=== PATIENT | male | born 1945 | race Caucasian/White ===

== ENCOUNTER 2023-02-22 09:10 | Inpatient (IN) ==
[2023-02-22] MEDS ORDERED: SODIUM CHLORIDE 0.9% 500 ML IV STA (09:26)
--- NOTE | 2023-02-22 09:26 | Emergency Department Note ---
Impression & Plan Acute pyelonephritis, Thrombocytopenia, Hypokalemia, Elevated troponin I level, Abnormal EKG ED Provider Note NAME: SAMM ACEVEDO Jr AGE: 77 SEX: M : 1945 ARRIVES VIA: Walk-In INFORMANT: Patient, ED PROVIDER(S): Marcellus Amaral DO CHIEF COMPLAINT: Urinary symptoms HPI: The patient is a 77-year-old male who presented to the emergency department for urinary symptoms. The patient presented with his daughter and significant other. They do provide part of the history. The patient has been having problems with urinary frequency over the course of the last few days. The patient is visiting from out of town. His son-in-law is a urologist and gave him a dose of a prostate medication thinking the patient might be in urinary retention. He has had a slight uptrend in his PSA recently but no specific diagnosis of urinary tension or prostate issues as of yet. He notices no fever or back pain but he started having diaphoresis. His family was concerned because he was not acting appropriately and appeared to be more tired than usual . There is been no vomiting. He denies having any chest pain or difficulty breathing. The patient denies having any hematuria. ROS: See above HPI for pertinent positives & negatives. A total of 10 systems reviewed and were otherwise negative. PAST MEDICAL HISTORY: See Below PAST SURGICAL HISTORY: See Below FAMILY HISTORY: See Below SOCIAL HISTORY: See Below HOME MEDICATIONS: See Below ALLERGIES: See Below VITALS: See Below PHYSICAL EXAMINATION: GENERAL: The patient is awake and alert. He is resting comfortably. EYES: The conjunctivae are clear. The pupils are round and reactive. EARS, NOSE, MOUTH AND THROAT: The nose is without any evidence of any deformity. Mucous membranes are moist. The right cornea is surgically irregular. NECK: The neck is nontender and supple. RESPIRATORY: Normal respiratory effort is noted there is no evidence of wheezing rhonchi or rales CARDIOVASCULAR: Regular rate and rhythm noted there no murmurs rubs or gallops normal S1 normal S2. GASTROINTESTINAL: The abdomen is soft and mildly distended. There is no specific tenderness guarding rigidity. BACK: No midline tenderness or or step-off noted range of motion in flexion extension as well as rotation no signs of muscle spasm noted MUSCULOSKELETAL/EXTREMITIES: There is no evidence of gross deformity full range of motion is noted in the hips and shoulders. SKIN: Skin is cool and dry. There is diaphoresis noted on the forehead. NEUROLOGIC: Patient is awake alert and oriented x3. MEDICAL DECISION MAKING: The patient is a 77-year-old male who presented to the emergency department with multiple complaints. The patient was with family. The family was very helpful in providing a good portion of the history. The patient was having problems with urinary frequency. Initially was felt to be secondary to urinary retentio n. He was started on a prostate medication by his son-in-law. The patient started having problems with sleeping. He presented to the emergency department and was very diaphoretic. This concerned the family members and this is why they brought him to the emergency department. The patient initially was not hypotensive but blood pressure did start to drop while in the emergency department. The patient was treated with IV fluids. He was also given IV antibiotics for presumed sepsis. I discussed the patient's laboratory and radiographic studies with him and his family. He was also found to have an abnormal EKG as well as an elevated troponin. There is no previous EKG in our system. For this reason further radiographic studies in the way of CT were obtained to ensure this was not pulmonary embolism as well as nothing intra- abdominal that was causing the patient's ongoing symptoms such as a perinephric abscess or pyelonephritis. The patient was found to have some abnormality in th e prostate which could be related to enlargement. He was reevaluated multiple times. Urinalysis did have a dip that could be consistent with infection but there were not many white blood cells. I would question if this represents an underlying prostate infection as well. I discussed all these concerns with the patient's family. I also discussed his condition with the on-call [facility] hospitalist. They have agreed to evaluate the patient in the emergency department for further management and disposition. Triage Nursing notes reviewed. Prior medical records reviewed Vital Signs: reviewed and remarkable for low blood pressure. Differential diagnosis: Testicular torsion, mass, infection, hernia, hydrocele, epididymitis, STI, trauma, intra-abdominal process, as well as other pathologies. ER treatment provided: See below Diagnostics interpreted by me: ECG: EKG was obtained in the emergency department. My interpretation is normal sinus rhythm at 71 bpm. There was no ectopy. Early transition was noted. Nonspecific ST segment abnormalities were appreciated. No previous tracing was available. Cardiac Monitoring: An order was placed for continuous cardiac monitoring. The monitor shows a rate of 64 bpm with sinus rhythm. Laboratory studies: As stated above and show below. Imaging studies: See below. Radiographic imaging was reviewed by myself Consultation(s): I discussed this case with Dr. Ho who is on-call for the [facility] hospitalist group. They will evaluate the patient in the emergency department for further management and disposition. ED COURSE: Procedures: none Critical Care: I have personally spent greater than 45 minutes of critical care time in the direct management of this patient. This includes bedside care, interpretation of diagnostic studies, and testing, discussion with consultants, patient, and family members, and other required patient management activities. This 45 minutes is in excess of all separately billable procedures. Past Med/Surg History Medical History High cholesterol Hypertension TIA (transient ischemic attack) Surgical History Hx of appendectomy Hx of cornea transplant Social History Smoking Status: Never smoker Preferred Language: Macedonian Feels Safe at Home: Yes Allergies Allergies Allergy/AdvReac Type Severity Reaction Status Date / Time No Known Allergies Allergy Unverified 02/22/23 10:43 Home Meds Home Medications Medication Instructions Recorded Confirmed aspirin 81 mg tablet,delayed 81 mg PO DAILY 02/22/23 02/22/23 release atorvastatin 80 mg tablet 80 mg PO HS 02/22/23 02/22/23 polyethylene glycol 3350 17 gram 17 g PO DAILY 02/22/23 02/22/23 oral powder packet (Miralax) primidone 50 mg tablet 50 mg PO HS 02/22/23 02/22/23 silodosin 8 mg capsule (Rapaflo) 8 mg PO DAILY 02/22/23 02/22/23 Results & Data (ED) Vital Signs Vital Signs - 24 hr 02/22/23 09:15 02/22/23 09:46 02/22/23 09:47 Temperature 36.9 C 36.9 C Temperature Source Temporal Artery Scan Oral Pulse Rate 76 73 Pulse Rate [Apical] 70 Pulse Rhythm [Apical] Regular Respiratory Rate 18 18 Respiratory Effort / Characteristics Non-Labored Spontaneous Non-Labored Spontaneous Respiratory Depth Normal Normal Respiratory Pattern Regular Regular Blood Pressure 101/72 Blood Pressure [Right Arm] 105/65 Blood Pressure Mean 81 Blood Pressure Mean [Right Arm] 78 Blood Pressure Position [Right Arm] Lying Pulse Oximetry 98 98 Oxygen Delivery Method Room Air Room Air Sepsis Recent Fever Within 48 Hours No Sepsis New/Unexplained Change in Mental Status No Sepsis Action Taken by Nursing No Action Required 02/22/23 10:38 02/22/23 11:03 Temperature Temperature Source Pulse Rate Pulse Rate [Apical] 64 Pulse Rhythm [Apical] Regular Respiratory Rate 18 Respiratory Effort / Characteristics Non-Labored Spontaneous Respiratory Depth Normal Respiratory Pattern Regular Blood Pressure Blood Pressure [Right Arm] 97/65 L Blood Pressure Mean Blood Pressure Mean [Right Arm] 75 Blood Pressure Position [Right Arm] Lying Pulse Oximetry 98 94 Oxygen Delivery Method Room Air Room Air Sepsis Recent Fever Within 48 Hours Sepsis New/Unexplained Change in Mental Status Sepsis Action Taken by [facility] Medications Current Medication List: was personally reviewed by me Laboratory Data Attestation: I reviewed the patient's lab results. 02/22/23 09:55 02/22/23 09:55 Lab Results 02/22/23 02/22/23 02/22/23 Range/Units 09:55 09:55 09:55 WBC 4.99 (4.8-10.8) K/ul RBC 5.03 (4.70-6.10) M/uL Hgb 16.3 (14.0-18.0) g/dl Hct 45.4 (42.0-52.0) % MCV 90.3 (80.0-100.0) fL MCH 32.4 (25.0-34.0) pg MCHC 35.9 (32.0-36.0) g/dL RDW Std Deviation 39.8 (36.4-46.3) fL RDW Coeff of Geno 12.0 (11.5-14.5) % Plt Count 66 L (130-400) K/uL MPV 10.5 (9.4-12.4) fL Immature Gran % (Auto) 0.8 % Neut % (Auto) 90.6 % Lymph % (Auto) 5.8 % [place] % (Auto) 2.2 % Eos % (Auto) 0.0 % Baso % (Auto) 0.6 % Neut # (Auto) 4.52 (1.40-6.50) K/uL Lymph # (Auto) 0.29 L (1.2-3.4) K/uL [place] # (Auto) 0.11 (0.11-0.59) K/uL Eos # (Auto) 0.00 (0-0.50) K/uL Baso # (Auto) 0.03 (0-0.2) K/uL Immature Gran # (Auto) 0.04 (0.01-0.20) K/uL Platelet Estimate Decreased L (Normal) Sodium 133 L (136-145) mmol/L Potassium 2.8 L (3.5-5.1) mmol/L Chloride 94 L (98-107) mmol/L Carbon Dioxide 27 (21-32) mmol/L Anion Gap 12 H (3-11) BUN 18 (6-23) mg/dl Creatinine 1.05 (0.6-1.4) mg/dl Est Cr Clr Drug Dosing 57.9 ml/min Est GFR ( Amer) 79.5 ml/min Est GFR (Non-Af Amer) 68.6 ml/min BUN/Creatinine Ratio 17.1 (10-20) Glucose 150 H (70-99(Fasting)) mg/dl Calcium 8.7 (8.6-10.3) mg/dl Total Bilirubin 2.1 H (0.2-1.0) mg/dl AST 50 H (13-39) U/L ALT 47 (7-52) U/L Alkaline Phosphatase 106 H (34-104) U/L Troponin I High Sens 41.2 H (0-20) pg/ml C-Reactive Protein 11.48 H (0-0.5) mg/dl Total Protein 6.6 (6.0-8.3) gm/dl Albumin 3.8 (3.4-5.0) gm/dl Globulin 2.8 (2.5-4.0) gm/dl Albumin/Globulin Ratio 1.4 (0.9-2) Lipase 17 (11-82) U/L Procalcitonin 0.79 H (0-0.5) ng/ml Urine Color Urine Appearance (Clear) Urine pH (4.5-7.5) Ur Specific [place] (1.000-1.030) Urine Protein (Negative) Urine Glucose (UA) (Negative) Urine Ketones (Negative) Urine Blood (Negative) Urine Nitrite (Negative) Urine Bilirubin (Negative) Urine Urobilinogen (Negative) Ur Leukocyte Esterase (Negative) Urine WBC (Auto) (0-5) /hpf Urine RBC (Auto) (0-4) /hpf U Hyaline Cast (Auto) (0-5) /lpf U Epithel Cells (Auto) (0-5) /lpf Urine Bacteria (Auto) (Negative) Ur Renal Epithelial Cell Granular Casts (0) /lpf Urine Mucus (None Prsent) 02/22/23 Range/Units 11:03 WBC (4.8-10.8) K/ul RBC (4.70-6.10) M/uL Hgb (14.0-18.0) g/dl Hct (42.0-52.0) % MCV (80.0-100.0) fL MCH (25.0-34.0) pg MCHC (32.0-36.0) g/dL RDW Std Deviation (36.4-46.3) fL RDW Coeff of Geno (11.5-14.5) % Plt Count (130-400) K/uL MPV (9.4-12.4) fL Immature Gran % (Auto) % Neut % (Auto) % Lymph % (Auto) % [place] % (Auto) % Eos % (Auto) % Baso % (Auto) % Neut # (Auto) (1.40-6.50) K/uL Lymph # (Auto) (1.2-3.4) K/uL [place] # (Auto) (0.11-0.59) K/uL Eos # (Auto) (0-0.50) K/uL Baso # (Auto) (0-0.2) K/uL Immature Gran # (Auto) (0.01-0.20) K/uL Platelet Estimate (Normal) Sodium (136-145) mmol/L Potassium (3.5-5.1) mmol/L Chloride (98-107) mmol/L Carbon Dioxide (21-32) mmol/L Anion Gap (3-11) BUN (6-23) mg/dl Creatinine (0.6-1.4) mg/dl Est Cr Clr Drug Dosing ml/min Est GFR ( Amer) ml/min Est GFR (Non-Af Amer) ml/min BUN/Creatinine Ratio (10-20) Glucose (70-99(Fasting)) mg/dl Calcium (8.6-10.3) mg/dl Total Bilirubin (0.2-1.0) mg/dl AST (13-39) U/L ALT (7-52) U/L Alkaline Phosphatase (34-104) U/L Troponin I High Sens (0-20) pg/ml C-Reactive Protein (0-0.5) mg/dl Total Protein (6.0-8.3) gm/dl Albumin (3.4-5.0) gm/dl Globulin (2.5-4.0) gm/dl Albumin/Globulin Ratio (0.9-2) Lipase (11-82) U/L Procalcitonin (0-0.5) ng/ml Urine Color Dark Yellow Urine Appearance Cloudy A (Clear) Urine pH 5.5 (4.5-7.5) Ur Specific [place] 1.030 (1.000-1.030) Urine Protein 2+ H (Negative) Urine Glucose (UA) 1+ H (Negative) Urine Ketones 1+ H (Negative) Urine Blood Trace H (Negative) Urine Nitrite Positive A (Negative) Urine Bilirubin 1+ H (Negative) Urine Urobilinogen Negative (Negative) Ur Leukocyte Esterase Negative (Negative) Urine WBC (Auto) 5-10 H (0-5) /hpf Urine RBC (Auto) 0-4 (0-4) /hpf U Hyaline Cast (Auto) 10-30 H (0-5) /lpf U Epithel Cells (Auto) >30 H (0-5) /lpf Urine Bacteria (Auto) 1+ H (Negative) Ur Renal Epithelial Cell Not Reportable Granular Casts 1-5 H (0) /lpf Urine Mucus Present A (None Prsent) Administered Medications Discontinued Medications Sodium Chloride (Nss) 500 mls @ 999 mls/hr IV .Q31M STA Stop: 02/22/23 09:56 Last Infusion: 02/22/23 11:37 Dose: 0 mls/hr Documented By: Admin: 02/22/23 09:49 Dose: 999 mls/hr Documented By: GABBI Sodium Chloride (Nss 1000ml) 500 mls @ 999 mls/hr IV .Q31M ONE Stop: 02/22/23 10:07 Last Infusion: 08/14/23 11:02 Dose: 0 mls/hr Documented By: Admin: 02/22/23 09:49 Dose: 999 mls/hr Documented By: GABBI Cefepime HCl (Maxipime) 2,000 mg in 20 mls @ 5 mls/min IV NOW STA; Protocol Stop: 02/22/23 11:19 Last Admin: 02/22/23 11:36 Dose: 5 mls/min Documented By: GABBI Potassium Chloride (K Sheng / Wtr) 10 meq in 100 mls @ 100 mls/hr IV ONE ONE Stop: 02/22/23 12:15 Last Infusion: 02/22/23 13:53 Dose: 0 mls/hr Documented By: Admin: 02/22/23 11:36 Dose: 100 mls/hr Documented By: GABBI Sodium Chloride (Nss 1000ml) 250 mls @ 999 mls/hr IV .Q16M ONE Stop: 02/22/23 11:32 Last Infusion: 02/22/23 12:25 Dose: 0 mls/hr Documented By: Admin: 02/22/23 11:36 Dose: 999 mls/hr Documented By: GABBI Sodium Chloride (Nss 1000ml) 1,000 mls @ 999 mls/hr IV .Q1H1M ONE Stop: 02/22/23 12:17 Last Infusion: 02/22/23 13:07 Dose: 0 mls/hr Documented By: Admin: 02/22/23 11:36 Dose: 999 mls/hr Documented By: GABBI Ioversol (Ioversol 350 Mg 125ml Prefilled Syringe) 118 ml IV ONCE ONE Stop: 02/22/23 12:52 Last Admin: 02/22/23 12:51 Dose: 118 ml Documented By: ROE Potassium Chloride (Potassium Chloride 10 Meq Tabcr) 20 meq PO NOW STA Stop: 02/22/23 11:17 Last Admin: 02/22/23 11:36 Dose: 20 meq Documented By: GABBI Imaging Data Attestation: I personally reviewed and interpreted this imaging study as follows: My Impression: 1 view chest x-ray was obtained in the emergency department. My interpretation is no free air or definite infiltrate, final report below. CT of the brain was obtained in the emergency department. My interpretation is no intracranial hemorrhage or mass effect, final report below. CT of the chest was obtained in the emergency department. My interpretation is no infiltrate or pneumothorax, final report below. CT of the abdomen and pelvis was obtained in the emergency department. My interpretation is no free air or signs of obstruction, final report below. Radiologist's Impression: Chest X-Ray 02/22/23 09:28 XR chest 1V portable CLINICAL HISTORY: abd pain TECHNIQUE: Single frontal radiograph of the chest was obtained. Comparison: None available at the time of this dictation. FINDINGS: No lines and tubes are seen. The cardiomediastinal silhouette is normal. The lungs are clear. No evidence of pleural effusion or pneumothorax. IMPRESSION: No acute chest disease. ACT 112: Negative or not required by law. Electronically signed by: Filiberto Walden M.D. 02/22/2023 9:45 AM Discharge Plan Visit Data Chief Complaint: Urinary Symptoms Stated Complaint: URINARY PROBLEMS, SWEATING ED Provider: Marcellus Amaral Discharge Problem: Acute pyelonephritis, Thrombocytopenia, Hypokalemia, Elevated troponin I level, Abnormal EKG Patient Disposition: Admitted As Inpatient Discharge Instructions Interventions: ED Discharge Assessment Last Done: 02/22/23 13:18
[2023-02-22] MEDS ORDERED: SODIUM CHLORIDE 0.9% 1000ML 500 ML IV ONE (09:37)
--- NOTE | 2023-02-22 09:47 | XRay Report ---
XR chest 1V portable CLINICAL HISTORY: abd pain TECHNIQUE: Single frontal radiograph of the chest was obtained. Comparison: None available at the time of this dictation. FINDINGS: No lines and tubes are seen. The cardiomediastinal silhouette is normal. The lungs are clear. No evid ence of pleural effusion or pneumothorax. IMPRESSION: No acute chest disease. ACT 112: Negative or not required by law. Electronically signed by: Filiberto Walden M.D. 02/22/2023 9:45 AM
[2023-02-22 10:38] LABS: Albumin Globulin Ratio 1.4 (0.9-2); Albumin Level 3.8 gm/dl (3.4-5.0); BUN Creatinine Ratio 17.1 (10-20); Bilirubin,Total 2.1 mg/dl (0.2-1.0); C Reactive Protein 11.48 mg/dl (0-0.5); Calcium 8.7 mg/dl (8.6-10.3); Creatinine Clr Calc Pharmacy 57.9 ml/min; Est GFR (African American) 79.5 ml/min; Est GFR (Non-African American) 68.6 ml/min; Globulin 2.8 gm/dl (2.5-4.0); Potassium 2.8 mmol/L (3.5-5.1); Total Protein 6.6 gm/dl (6.0-8.3)
[2023-02-22 10:44] LABS: Troponin I High Sensitivity 41.2 pg/ml (0-20)
[2023-02-22 10:54] LABS: Basophils # (auto) 0.03 K/uL (0-0.2); Basophils % (auto) 0.6 %; Hematocrit (blood only) 45.4 % (42.0-52.0); Hemoglobin 16.3 g/dl (14.0-18.0); Immature Granulocytes # (auto) 0.04 K/uL (0.01-0.20); Immature Granulocytes % (auto) 0.8 %; Lymphocytes # (auto) 0.29 K/uL (1.2-3.4); Lymphocytes % (auto) 5.8 %; Mean Corpuscular Hemoglobin 32.4 pg (25.0-34.0); Mean Corpuscular Hgb Conc 35.9 g/dL (32.0-36.0); Mean Corpuscular Volume 90.3 fL (80.0-100.0); Mean Platelet Volume 10.5 fL (9.4-12.4); Monocytes # (auto) 0.11 K/uL (0.11-0.59); Monocytes % (auto) 2.2 %; Neutrophils # (auto) 4.52 K/uL (1.40-6.50); Neutrophils % (auto) 90.6 %; Platelet Count 66 K/uL (130-400); Platelet Estimate Decreased (Normal); RDW Standard Deviation 39.8 fL (36.4-46.3); Red Blood Count 5.03 M/uL (4.70-6.10); White Blood Count 4.99 K/ul (4.8-10.8)
[2023-02-22] MEDS ORDERED: POTASSIUM CHLORIDE / WTR 10 MEQ/100 ML PLCT IV ONE (11:16)
[2023-02-22] MEDS ORDERED: POTASSIUM CHLORIDE 10 MEQ TABCR PO STA (11:16)
[2023-02-22] MEDS ORDERED: CEFEPIME 2,000 MG/20 ML VIAL IV STA (11:16)
[2023-02-22] MEDS ORDERED: SODIUM CHLORIDE 0.9% 1000ML 1,000 ML IV ONE (11:17)
[2023-02-22] MEDS ORDERED: SODIUM CHLORIDE 0.9% 1000ML 250 ML IV ONE (11:17)
[2023-02-22 11:32] LABS: Appearance Urine Cloudy (Clear); Blood Urine Trace (Negative); Color Urine Dark Yellow; Epithelial Cell Urine Auto >30 /lpf (0-5); Glucose Urine UA 1+ (Negative); Ketones Urine 1+ (Negative); Leukocyte Esterase Urine Negative (Negative); Nitrite Urine Positive (Negative); Protein Urine 2+ (Negative); Urobilinogen Urine Negative (Negative); pH Urine 5.5 (4.5-7.5)
[2023-02-22 11:36] LABS: Bilirubin Urine 1+ (Negative)
--- NOTE | 2023-02-22 11:40 | History & Physical Report ---
Date of Service February 22, 2023 Assessment & Plan (1) Acute pyelonephritis: Plan: Complicated UTI, SIRS by hypotension and leukocytosis with source Ordered for 30 cc/kg of IVF M, 1 L complete at time of hospitalist admission - CT-A/P: 1. No bowel obstruction or bowel wall thickening.2. Prostatomegaly with urinary bladder wall thickening suggestive of chronic outlet obstruction. Correlate with urinalysis to exclude cystitis.3. Colonic diverticulosis.4. Additional findings as above. Lactate wnl BP on hospitalist assessment improved, normotensive Several days of urinary symptoms UA with ketones, blood, nitrites suspicious for infection, UC pending CXR: No acute findings No leukocytosis Potassium 2.8, AG 12 Pro-Ethan 0.79 suspicious for bacteremia CRP 11.48 - Continue cefepime, narrow based on UC Systolic murmur New holosystolic murmur, new per patient with no prior history of this TTE --> EF 60-65%. Moder . Hypokalemia 2.8 with poor p.o. intake for several days. 30 mEq repletion pending. Additional 20 mEq x 3 p.o. doses ordered Trend daily Magnesium added, pending. Replete to goal of 2.0 Elevated troponin No history of heart failure Clinically without chest pain, chest pressure. Suspected demand. Echo pending for murmur as noted - troponin 41.2 on admission, repeat post fluids downtrended. Defer q6h trend, follow clinically for pain EKG with incomplete right bundle branch block, QTc 423, no territorial ST segment or T wave changes. No baseline for comparison. Elevated PSA Patient follows with urology as outpatient, he is from [place] of state visiting for his grandsons birthday No history of prostate cancer or LUTS, but PSA has been slowly rising as outpatient.? Contribution to UTI He has not had pain with bowel movements or dysuria suspicious for prostatitis; however given suspected bacteremia due to cold sweats and elevated procal we will follow-up with prostate exam after patient has received antibiotics for a few hours DVT prophylaxis: Lovenox Disposition: Medical telemetry for elevated troponin, downgrade after 24 hours if stable and chest pain-free CODE STATUS: Full code Diet: Heart healthy (2) Thrombocytopenia: (3) Elevated troponin I level: (4) Hypokalemia: History of Present Illness Primary Care Provider: Johnny Becker Chris is a 77-year-old male with a past medical history of hypertension, TIA, appendectomy, hyperlipidemia, hyperlipidemia on aspirin/atorvastatin Chris is seen at the [facility] at bedside. Per ER: presented to the ER with dysuria and hypotension. Patient has had increased urinary frequency last several days. He has no fever/chills but did start to get sweaty episodes and fatigue. While in the ER he is fond to be hypotensive of 97/65. Total Fluids at Assessment: 1000. 2250cc total pending Per Family: Chris reports Staurday night he started having to get up every few hours to pee and could barely make it before he would have episodes of incontinence. The next day during the day he was having persistent frequency all day long and peed his shorts because he couldn't make it to the bathroom in time. last night he was up every hour voiding and then had some cold sweats in the morning which are not normal for him. Endorses weakness all over and fatigue. Feels exhausted and is having trouble sleeping because he has to keep urinating. Decreased appetite. No nausea/vomiting. 'I'm a haile that at 77 I can normally sleep all night long without any issues going to the bathroom, prostate has a PSA uptrending but no voiding issues from this' No dysuria or itching/ No pain with bowel movements. Does take miralax for regularity daily in the morning with coffee. 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 - Tried rapaflo x1 last night and this morning, this i snot a chronic med for him Medical History: Reviewed Medications: Reviewed Surgical History: Reviewed Family history: Reviewed Allergies: Reviewed Social History: Age [age] tobacco use while in the [employer], none in 46 years. Rare social etoh use Code Status: DNR/DNI Allergies Allergy/AdvReac Type Severity Reaction Status Date / Time No Known Allergies Allergy Unverified 02/22/23 10:43 Home Medications Medication Instructions Recorded Confirmed Type aspirin 81 mg tablet,delayed 81 mg PO DAILY 02/22/23 02/22/23 History release atorvastatin 80 mg tablet 80 mg PO HS 02/22/23 02/22/23 History polyethylene glycol 3350 17 gram 17 g PO DAILY 02/22/23 02/22/23 History oral powder packet (Miralax) primidone 50 mg tablet 50 mg PO HS 02/22/23 02/22/23 History silodosin 8 mg capsule (Rapaflo) 8 mg PO DAILY 02/22/23 02/22/23 History Past Med/Surg History Medical History High cholesterol Hypertension TIA (transient ischemic attack) Surgical History Hx of appendectomy Hx of cornea transplant Social History Smoking Status: Never smoker Preferred Language: Greek Feels Safe at Home: Yes Review of Systems Review of Systems: All systems reviewed & are unremarkable except as noted in HPI & below Physical Exam Physical Exam: General: A&Ox3. NAD. Cooperative. HEENT: Atraumatic, normocephalic. Vision/hearing intact Pulm: CTAB A&P. -wheezes, -rales, -rhonchi. Symmetrical chest rise. No increased work of breathing. No respiratory distress. Cardiac: RRR, -mrg. Radial pulses intact and symmetrical. Abdominal: Nontender, nondistended, soft. BS present. No CVA tenderness. Ext: warm, dry, no edema Results & Data Results & Data Vital Signs (Past 12 Hours) Vital Signs Temp Pulse Pulse Resp BP BP Pulse Ox 02/22/23 11:03 64 18 97/65 L 94 02/22/23 10:38 98 02/22/23 09:47 36.9 C 70 18 105/65 98 02/22/23 09:46 73 02/22/23 09:15 36.9 C 76 18 101/72 98 O2 Del Method 02/22/23 11:03 Room Air 02/22/23 10:38 Room Air 02/22/23 09:47 Room Air 02/22/23 09:46 02/22/23 09:15 Room Air PG Care Time/CCT Total # of Minutes Spent Total Time Spent with Patient: Total time spent is greater than 50% in coordination of care (as documented) at patient's floor/unit and/or counseling patient: Coding Level of Care Code 12608 INT INP/OBS CARE 3/75MIN Diagnoses Acute pyelonephritis N10 Thrombocytopenia D69.6 Elevated troponin I level R77.8 Hypokalemia E87.6
[2023-02-22 12:02] LABS: Mucus Urine Present (None Prsent); RBC Urine Automated 0-4 /hpf (0-4)
[2023-02-22 12:03] LABS: Bacteria Urine Automated 1+ (Negative)
[2023-02-22] MEDS ORDERED: IOVERSOL 350 MG 125mL Prefilled Syringe IV ONE (12:51)
--- NOTE | 2023-02-22 12:56 | CT Scan Report ---
CT head/brain wo con CLINICAL HISTORY: 77 years-old Male with AMS. Acutely altered mental status TECHNIQUE: Multiple axial CT images of the head were obtained without contrast. A dose lowering tech nique was utilized adhering to the principles of ALARA. CT DOSE: 4251.71 mGy.cm COMPARISON: None. FINDINGS: No acute intracranial hemorrhage, midline shift, intracranial mass, hydrocephalus, territorial ischem ia or abnormal extra-axial collection. Involutional changes with chronic microvascular ischemic disea se. The calvarium is intact. Right-sided lens repair. The paranasal sinuses, mastoid air cells, and midd le ear cavities are clear. IMPRESSION: No acute intracranial abnormality. ACT 112: Negative or not required by law. The above report was generated using voice recognition software. It may contain grammatical, syntax o r spelling errors. Electronically signed by: Santiago Moreno M.D. 02/22/2023 12:54 PM
[2023-02-22 13:00] LABS: Magnesium 1.6 mg/dl (1.7-2.4)
[2023-02-22 13:07] LABS: Troponin I High Sensitivity 31.6 pg/ml (0-20)
--- NOTE | 2023-02-22 13:11 | CT Scan Report ---
CT angio chest PE protocol CLINICAL HISTORY: PE TECHNIQUE: Multidetector row helical CT of the chest was performed with angiographic protocol. Freeman l and sagittal reformations were obtained. Coronal and sagittal MIPS were obtained from the axial nitesh a set and were submitted for review. Automated dose lowering techniques and/or adjustment according to patient size were utilized for this exam. Comparison: None available at the time of this dictation. FINDINGS: Lungs and pleura: Normal. Heart and pericardium: Heart size is normal. No pericardial effusion. Vessels: No evidence of pulmonary embolism. Mediastinum and kathy: Enlarged lymph nodes measure up to 11 mm in diameter. Chest wall and lower neck: Unremarkable. Abdomen: A hiatal hernia is seen. Bones: Degenerative changes in the thoracic spine. IMPRESSION: No acute abnormality and in particular no evidence of pulmonary embolus. Mediastinal lymph nodes are nonspecific. ACT 112: Negative or not required by law. Electronically signed by: Filiberto Walden M.D. 02/22/2023 1:08 PM
--- NOTE | 2023-02-22 13:14 | CT Scan Report ---
ABDOMEN AND PELVIS CT WITH IV CONTRAST HISTORY: Acute sepsis with urinary tract infection sepsis, UTI S/S TECHNIQUE: Multiaxial CT images of the abdomen and pelvis were performed following the IV administrat ion of 118 cc of Optiray, A dose lowering technique was utilized adhering to the principles of ALARA . COMPARISON STUDY: CTA chest of same day FINDINGS: The heart is normal in size. No pericardial effusion. Clear lung bases. No free air. Unrema rkable spleen, mildly atrophic pancreas, adrenal glands and mildly contracted gallbladder. Unremarkab le liver. Patent portal vein. Unremarkable kidneys. Mild nonspecific bilateral perinephric stranding. No hydronephrosis. 10 mm cyst in the inferior pole right kidney. Mild nonspecific wall thickening of the bladder. Prostatomegaly. Atherosclerosis of the aorta with mild ectasia measuring up to 2.7 cm i n the segment. No lymphadenopathy. Mild distal esophageal wall thickening with tiny hiatal hernia. Small duodenal diverticulum. There is no bowel obstruction or bowel wall thickening. Colonic diverticulosis. Eqrh-op-lhatfjkn colonic feca l retention. Appendectomy. Unremarkable soft tissues. Chronic-appearing compression deformity of the T11 vertebral body without retropulsion. IMPRESSION: 1. No bowel obstruction or bowel wall thickening. 2. Prostatomegaly with urinary bladder wall thickening suggestive of chronic outlet obstruction. Feroz elate with urinalysis to exclude cystitis. 3. Colonic diverticulosis. 4. Additional findings as above. ACT 112: Negative or not required by law. The above report was generated using voice recognition software. It may contain grammatical, syntax o r spelling errors. Electronically signed by: Santiago Moreno M.D. 02/22/2023 1:13 PM
[2023-02-22] MEDS ORDERED: ONDANSETRON INJ 2 MG/ML 2 ML VIAL IV PRN (13:32)
--- NOTE | 2023-02-22 14:21 | Electrocardiogram Report ---
Test Reason : Blood Pressure : / mmHG Vent. Rate : 071 BPM Atrial Rate : 071 BPM P-R Int : 146 ms QRS Dur : 096 ms QT Int : 390 ms P-R-T Axes : 039 -19 033 degrees QTc Int : 423 ms Normal sinus rhythm Incomplete right bundle branch block Borderline ECG No previous ECGs available Confirmed by Marcellus Livingston ([id number]) on 02/22/2023 2:20:58 PM Referred By: REFERRED SELF Confirmed By:Marcellus Livingston
[2023-02-22] MEDS: POTASSIUM CHLORIDE CRTAB 20 MEQ TABCR PO SCH ×2 (15:12→21:26)
[2023-02-22] MEDS: MAGNESIUM SULFATE / D5W 1 GM/100 ML BAG IV SCH ×2 (15:12→17:19)
[2023-02-22 15:25] LABS: BUN Creatinine Ratio 18.2 (10-20); Calcium 7.9 mg/dl (8.6-10.3); Creatinine Clr Calc Pharmacy 61.4 ml/min; Est GFR (African American) 85.4 ml/min; Est GFR (Non-African American) 73.7 ml/min; Potassium 3.3 mmol/L (3.5-5.1)
[2023-02-22] MEDS: ENOXAPARIN INJ 40 MG/0.4 ML SYR SQ SCH (16:00)
--- NOTE | 2023-02-22 16:06 | XCELERA ---
[id number]}___[id number]
[2023-02-22] MEDS: ACETAMINOPHEN 325 MG TAB PO PRN (16:12)
[2023-02-22 19:54] LABS: BUN Creatinine Ratio 22.8 (10-20); Calcium 7.7 mg/dl (8.6-10.3); Creatinine Clr Calc Pharmacy 66.1 ml/min; Est GFR (African American) 93.3 ml/min; Est GFR (Non-African American) 80.5 ml/min; Potassium 3.1 mmol/L (3.5-5.1)
[2023-02-22] MEDS: ATORVASTATIN 40 MG TAB PO SCH (21:24)
[2023-02-22] MEDS: PRIMIDONE 50 MG TAB PO SCH (21:24)
[2023-02-22] MEDS: MAGNESIUM OXIDE 400 MG TAB PO SCH (21:24)
[2023-02-22] MEDS: CEFEPIME 2,000 MG in SYRINGE 0 ML IV SCH (22:25)
[2023-02-23] MEDS ORDERED: MELATONIN 3 MG TAB PO PRN (01:42)
[2023-02-23 07:39] LABS: BUN Creatinine Ratio 21.7 (10-20); C Reactive Protein 10.41 mg/dl (0-0.5); Calcium 8.1 mg/dl (8.6-10.3); Creatinine Clr Calc Pharmacy 73.3 ml/min; Est GFR (African American) 99.1 ml/min; Est GFR (Non-African American) 85.5 ml/min; Potassium 3.3 mmol/L (3.5-5.1)
[2023-02-23 07:42] LABS: Basophils # (auto) 0.02 K/uL (0-0.2); Basophils % (auto) 0.7 %; Dohle Bodies 1+; Echinocytes 1+; Hematocrit (blood only) 40.9 % (42.0-52.0); Hemoglobin 14.8 g/dl (14.0-18.0); Immature Granulocytes # (auto) 0.01 K/uL (0.01-0.20); Immature Granulocytes % (auto) 0.3 %; Lymphocytes # (auto) 0.37 K/uL (1.2-3.4); Lymphocytes % (auto) 12.2 %; Mean Corpuscular Hgb Conc 36.2 g/dL (32.0-36.0); Mean Corpuscular Volume 88.5 fL (80.0-100.0); Mean Platelet Volume 11.9 fL (9.4-12.4); Monocytes # (auto) 0.21 K/uL (0.11-0.59); Monocytes % (auto) 6.9 %; Neutrophils # (auto) 2.42 K/uL (1.40-6.50); Neutrophils % (auto) 79.9 %; Platelet Count 38 K/uL (130-400); Platelet Estimate Decreased (Normal); RDW Coefficient of Variation 12.3 % (11.5-14.5); RDW Standard Deviation 40.1 fL (36.4-46.3); Red Blood Count 4.62 M/uL (4.70-6.10); Toxic Vacuolation 1+; White Blood Count 3.03 K/ul (4.8-10.8)
[2023-02-23] MEDS: ACETAMINOPHEN 325 MG TAB PO PRN ×2 (08:00→18:35)
[2023-02-23 09:22] LABS: Albumin Level 3.3 gm/dl (3.4-5.0); Bilirubin Direct 0.5 mg/dl (0-0.2); Bilirubin,Total 1.5 mg/dl (0.2-1.0); Magnesium 2.1 mg/dl (1.7-2.4)
[2023-02-23 09:28] LABS: Total Protein 5.8 gm/dl (6.0-8.3)
[2023-02-23] MEDS: ASPIRIN 81 MG ECTAB PO SCH (09:33)
[2023-02-23] MEDS: MAGNESIUM OXIDE 400 MG TAB PO SCH (09:34)
[2023-02-23] MEDS: POTASSIUM CHLORIDE CRTAB 20 MEQ TABCR PO SCH ×2 (09:34→15:05)
[2023-02-23] MEDS: ENOXAPARIN INJ 40 MG/0.4 ML SYR SQ SCH (09:34)
[2023-02-23] MEDS: POLYETHYLENE (MIRALAX) 17 GM PACK PO SCH (09:34)
[2023-02-23] MEDS: TAMSULOSIN HCL 0.4 MG CAP PO SCH (09:42)
[2023-02-23] MEDS: CEFEPIME 2,000 MG in SYRINGE 0 ML IV SCH (11:21)
--- NOTE | 2023-02-23 15:17 | Urology Consultation ---
Date of Consultation February 23, 2023 Assessment & Plan (1) Acute UTI: 77-year-old male admitted for acute complicated UTI, hypokalemia, and elevated troponin. Patient afebrile with stable vitals Subjectively feeling much better Labscreatinine 0.83, no leukocytosis UA suggestive of infection with positive nitrates and bacteria Blood cultures showing no growth x24 hours Urine culture showing pinpoint growth reincubating Recommend continue broad-spectrum antibiotics and narrow per sensitivity data when available, treat for complicated UTI CT A/P reviewed and suggestive of prostatomegaly, urinary bladder wall thickening suggestive of chronic outlet obstruction Voiding spontaneously, low PVRs - continue to monitor Continue Tamsulosin PSA 3.688, stable from previous Recommend follow-up with his PCP/urologist for further management will sign off, contact our service with any additional questions History of Present Illness Reason for Consultation: concern for prostatitis/complicated UTI Requesting Physician: Dr. Mondragon Attending Physician: Manuel Mondragon History of Present Illness This is a 77-year-old male with past medical history of hypertension, hyperlipidemia, and TIA who presented to the emergency department on 02/22/2023 with urinary frequency, incontinence and ill feelings and was admitted for acute complicated UTI, hypokalemia, and elevated troponin. On arrival, he was afebrile and hemodynamically stable. Labs showed creatinine 1.05, sodium 133, potassium 2.8, WBC 4.99, hemoglobin 16.3, procalcitonin 0.79. Urinalysis showed 2+ protein, 1+ glucose 1+ ketones, trace blood, positive nitrates, 5-10 WBC, >30 epithelials, 1+ bacteria. Urine and blood cultures collected. CT imaging reviewed and showed no hydronephrosis, prostatomegaly with urinary bladder wall thickening suggestive of chronic outlet obstruction. He became diaphoretic and hypotensive of 97/65 in ER. ED course included IV fluids, cefepime, and potassium chloride. He was admitted to the hospital medicine service. Urology consulted for evaluation of concern for prostatitis/complicated UTI. Chart review: Febrile this am (38.4) Tmax 39.4 on 02/22 Labs - creatinine 0.83, WBC 3.03, Hgb 14.8 Blood cultures no growth x 24 hours Urine culture prelim [place] growth reincubating On IV Cefepime PVR 8 mL on 02/22 PSA 3.688 Patient seen and examined at bedside this afternoon. Family present. He reports he is in town visiting family. He developed urinary frequency and urge ncy about 3 days ago. Reports episodes of incontinence. He was given Rapaflo for suspected retention/overflow incontinence. He became weak, fatigued, and diaphoretic prompting ER evaluation. Currently feeling well. Denies dysuria, hematuria. No suprapubic or flank pain. No nausea, vomiting, fever or chills. Denies bothersome LUTS at baseline. Denies nocturia or feelings of incomplete emptying. Denies constipation. Takes Miralax daily. [facility] His daughter provides PSA values. Previous PSAs: 4.229 (07/2022), 3.753 (12/2021), 3.296 (05/2021), 2.243 (08/2020). No additional concerns today. Allergies Allergy/AdvReac Type Severity Reaction Status Date / Time No Known Allergies Allergy Unverified 02/22/23 10:43 Home Medications Medication Instructions Recorded Confirmed Type aspirin 81 mg tablet,delayed 81 mg PO DAILY 02/22/23 02/22/23 History release atorvastatin 80 mg tablet 80 mg PO HS 02/22/23 02/22/23 History polyethylene glycol 3350 17 gram 17 g PO DAILY 02/22/23 02/22/23 History oral powder packet (Miralax) primidone 50 mg tablet 50 mg PO HS 02/22/23 02/22/23 History silodosin 8 mg capsule (Rapaflo) 8 mg PO DAILY 02/22/23 02/22/23 History Patient History Medical History High cholesterol Hypertension TIA (transient ischemic attack) Surgical History Hx of appendectomy Hx of cornea transplant Social History Smoking Status: Former smoker Hx Alcohol Use: Yes Alcohol type: wine Hx Substance Use: No Preferred Language: Nepali Communication Ability: Effective Top Loader Required: No Beliefs That Will Affect Care: None Current Living Situation: Spouse Other Information That Helps Us Care for You: No Feels Safe at Home: Yes Safety Concerns: Feels Safe At This Time Assistive Devices: None Review of Systems Review of Systems: All systems reviewed & are unremarkable except as noted in HPI & below Physical Exam Physical Exam: Constitutional: Well-developed, well-nourished and in no acute distress. Eyes: The sclera and conjunctiva are normal. Neck: Trachea is in the midline. Pulmonary: No increased work of breathing or signs of respiratory distress. Cardiovascular: No edema noted. Musculoskeletal: The gait and station are normal. Skin: Normal without rashes or lesions. Neurologic: No obvious focal deficit. Mood and affect: Normal. Results & Data Vital Signs (Past 12 Hours) Vital Signs Temp Pulse Pulse Pulse Resp BP Pulse Ox 02/23/23 12:51 37.1 C 74 16 102/67 95 02/23/23 09:00 02/23/23 08:45 37.4 C 02/23/23 08:06 38.4 C H 84 18 152/84 H 92 02/23/23 07:49 85 02/23/23 03:57 37.5 C 79 16 145/82 H 92 O2 Del Method 02/23/23 12:51 Room Air 02/23/23 09:00 Room Air 02/23/23 08:45 02/23/23 08:06 Room Air 02/23/23 07:49 02/23/23 03:57 Room Air PG Care Time/CCT Total # of Minutes Spent Total Time Spent with Patient: Total time spent is greater than 50% in coordination of care (as documented) at patient's floor/unit and/or counseling patient: Coding Level of Care Code 45501 INT INP/OBS CARE 2/55MIN Diagnoses Acute UTI N39.0
[2023-02-23] MEDS: PRIMIDONE 50 MG TAB PO SCH (21:01)
[2023-02-23] MEDS: ATORVASTATIN 40 MG TAB PO SCH (21:01)
--- NOTE | 2023-02-23 22:31 | Hospitalist Progress Note ---
Date of Service February 23, 2023 Assessment & Plan (1) Acute pyelonephritis: Plan: Complicated UTI, SIRS by hypotension and leukocytosis with source Ordered for 30 cc/kg of IVF M, 1 L complete at time of hospitalist admission - CT-A/P: 1. No bowel obstruction or bowel wall thickening.2. Prostatomegaly with urinary bladder wall thickening suggestive of chronic outlet obstruction. Correlate with urinalysis to exclude cystitis.3. Colonic diverticulosis.4. Additional findings as above. Lactate wnl BP on hospitalist assessment improved, normotensive Several days of urinary symptoms UA with ketones, blood, nitrites suspicious for infection, UC pending CXR: No acute findings No leukocytosis -Hypokalemia remains. Will continue on potassium replacement. WIll continue on his current antibiotics. Concern over prostatitis will consult with urology. Pro-Ethan 0.79 CRP 11.48 - Continue cefepime, narrow based on UC Systolic murmur New holosystolic murmur, new per patient with no prior history of this TTE --> EF 60-65%. Moder . Hypokalemia 2.8 with poor p.o. intake for several days. 30 mEq repletion pending. Additional 20 mEq x 3 p.o. doses ordered Trend daily Magnesium added, pending. Replete to goal of 2.0 Elevated troponin No history of heart failure Clinically without chest pain, chest pressure. Suspected demand. Echo pending for murmur as noted - troponin 41.2 on admission, repeat post fluids downtrended. Defer q6h trend, follow clinically for pain EKG with incomplete right bundle branch block, QTc 423, no territorial ST segment or T wave changes. No baseline for comparison. Elevated PSA Patient follows with urology as outpatient, he is from out of state visiting for his grandsons birthday No history of prostate cancer or LUTS, but PSA has been slowly rising as outpatient.? Contribution to UTI He has not had pain with bowel movements or dysuria suspicious for prostatitis; however given suspected bacteremia due to cold sweats and elevated procal we will follow-up with prostate exam after patient has received antibiotics for a few hours DVT prophylaxis: Lovenox Disposition: Medical telemetry for elevated troponin, downgrade after 24 hours if stable and chest pain-free CODE STATUS: Full code Diet: Heart healthy (2) Thrombocytopenia: (3) Elevated troponin I level: (4) Hypokalemia: Admission and Anticipated Discharge Date Admission Date: February 22, 2023 Subjective 77 yo male reports no new symptoms. Review of Systems Review of Systems: All systems reviewed & are unremarkable except as noted in HPI & below Physical Exam Physical Exam: General: A&Ox3. NAD. Cooperative. HEENT: Atraumatic, normocephalic. Vision/hearing intact Pulm: CTAB A&P. -wheezes, -rales, -rhonchi. Symmetrical chest rise. No increased work of breathing. No respiratory distress. Cardiac: RRR, -mrg. Radial pulses intact and symmetrical. Abdominal: Nontender, nondistended, soft. BS present. No CVA tenderness. Ext: warm, dry, no edema MSK: No CVA tenderness Results & Data Results & Data Vital Signs (Past 12 Hours) Vital Signs Temp Pulse Pulse Resp BP Pulse Ox O2 Del Method 02/23/23 19:53 38.2 C H 89 18 132/77 93 Room Air 02/23/23 15:54 76 02/23/23 15:37 37.3 C 77 16 106/63 91 Room Air 02/23/23 12:51 37.1 C 74 16 102/67 95 Room Air PG Care Time/CCT Total # of Minutes Spent Total Time Spent with Patient: Total time spent is greater than 50% in coordination of care (as documented) at patient's floor/unit and/or counseling patient: Coding Level of Care Code 66667 SUB INP/OBS CARE 3/50MIN Diagnoses Acute pyelonephritis N10 Thrombocytopenia D69.6 Elevated troponin I level R77.8 Hypokalemia E87.6
[2023-02-24] MEDS ORDERED: diphenhydrAMINE Capsule 25 MG CAP PO ONE (01:06)
[2023-02-24] MEDS: ACETAMINOPHEN 325 MG TAB PO PRN (07:52)
[2023-02-24] MEDS: ENOXAPARIN INJ 40 MG/0.4 ML SYR SQ SCH (08:37)
[2023-02-24] MEDS: ASPIRIN 81 MG ECTAB PO SCH (08:37)
[2023-02-24] MEDS: POLYETHYLENE (MIRALAX) 17 GM PACK PO SCH (08:39)
[2023-02-24 08:47] LABS: Hematocrit (blood only) 38.6 % (42.0-52.0); Hemoglobin 13.8 g/dl (14.0-18.0); Mean Corpuscular Hemoglobin 32.3 pg (25.0-34.0); Mean Corpuscular Hgb Conc 35.8 g/dL (32.0-36.0); Mean Corpuscular Volume 90.4 fL (80.0-100.0); Mean Platelet Volume 12.3 fL (9.4-12.4); Platelet Count 40 K/uL (130-400); RDW Coefficient of Variation 12.4 % (11.5-14.5); RDW Standard Deviation 40.9 fL (36.4-46.3); Red Blood Count 4.27 M/uL (4.70-6.10); White Blood Count 3.23 K/ul (4.8-10.8)
[2023-02-24 09:04] LABS: BUN Creatinine Ratio 20.3 (10-20); Calcium 7.8 mg/dl (8.6-10.3); Creatinine Clr Calc Pharmacy 83.3 ml/min; Est GFR (African American) 101.1 ml/min; Est GFR (Non-African American) 87.2 ml/min; Potassium 3.4 mmol/L (3.5-5.1)
[2023-02-24 09:06] LABS: Basophils # (auto) 0.02 K/uL (0-0.2); Basophils % (auto) 0.6 %; Eosinophils # (auto) 0.06 K/uL (0-0.50); Eosinophils % (auto) 1.9 %; Immature Granulocytes # (auto) 0.02 K/uL (0.01-0.20); Immature Granulocytes % (auto) 0.6 %; Lymphocytes # (auto) 0.78 K/uL (1.2-3.4); Lymphocytes % (auto) 24.1 %; Monocytes # (auto) 0.27 K/uL (0.11-0.59); Monocytes % (auto) 8.4 %; Neutrophils # (auto) 2.08 K/uL (1.40-6.50); Neutrophils % (auto) 64.4 %; RBC Morphology Unremarkable
[2023-02-24] MEDS: TAMSULOSIN HCL 0.4 MG CAP PO SCH (09:37)
--- NOTE | 2023-02-24 09:38 | Urology Progress Note ---
Date of Service February 24, 2023 Assessment & Plan (1) Acute UTI: Plan: Suspected acute UTIno pathogen identified yet Continue antibiotics and supportive care Fevers yesterday afternoon but subjectively much better Continue monitoringdischarge home on oral antibiotics (will likely have to be empiric) once stable for 12 to 24 hours Admission and Anticipated Discharge Date Admission Date: February 22, 2023 Subjective Fevers yesterday evening but he reports that he is feeling much better today His temperature this morning is 37 7 Celsius Not tachycardic Normotensive Reports that he is urinating without dysuria or hematuria and he feels he is emptying completely PVRs were low yesterday Cultures have not proven to capture the pathogen Presumption is still urinary tract infection as his underlying cause He does not have a leukocytosis Physical Exam Constitutional: well developed and well nourished Respiratory: no respiratory distress Cardiovascular: Extremities: no pedal edema Gastrointestinal (Abdomen): Inspection/Auscultation: abdomen normal to inspection Results & Data Vital Signs (Past 12 Hours) Vital Signs Temp Pulse Pulse Resp BP BP Pulse Ox 02/24/23 07:43 37.7 C H 90 16 125/80 90 02/24/23 07:13 84 02/23/23 21:59 68 02/24/23 02:22 36.8 C 76 16 110/69 92 02/23/23 22:54 37.7 C H 69 18 99/59 L 94 O2 Del Method 02/24/23 07:43 Room Air 02/24/23 07:13 02/23/23 21:59 02/24/23 02:22 Room Air 02/23/23 22:54 Room Air PG Care Time/CCT Total # of Minutes Spent Total Time Spent with Patient: Total time spent is greater than 50% in coordination of care (as documented) at patient's floor/unit and/or counseling patient: Coding Level of Care Code 65541 SUB INP/OBS CARE 2/35MIN Diagnoses Acute UTI N39.0
[2023-02-24] MEDS ORDERED: POTASSIUM CHLORIDE CRTAB 20 MEQ TABCR PO SCH (10:40)
[2023-02-24] MEDS: CEFEPIME 2,000 MG in SYRINGE 0 ML IV SCH ×2 (11:10)
--- NOTE | 2023-02-24 13:54 | Discharge Summary ---
Date of Service February 24, 2023 Admission HPI Per Admitting Provider Chris is a 77-year-old male with a past medical history of hypertension, TIA, appendectomy, hyperlipidemia, hyperlipidemia on aspirin/atorvastatin Chris is seen at the [facility] at bedside. Per ER: presented to the ER with dysuria and hypotension. Patient has had increased urinary frequency last several days. He has no fever/chills but did start to get sweaty episodes and fatigue. While in the ER he is fond to be hypotensive of 97/65. Total Fluids at Assessment: 1000. 2250cc total pending Per Family: Chris reports Staurday night he started having to get up every few hours to pee and could barely make it before he would have episodes of incontinence. The next day during the day he was having persistent frequency all day long and peed his shorts because he couldn't make it to the bathroom in time. last night he was up every hour voiding and then had some cold sweats in the morning which are not normal for him. Endorses weakness all over and fatigue. Feels exhausted and is having trouble sleeping because he has to keep urinating. Decreased appetite. No nausea/vomiting. 'I'm a haile that at 77 I can normally sleep all night long without any issues going to the bathroom, prostate has a PSA uptrending but no voiding issues from this' No dysuria or itching/ No pain with bowel movements. Does take miralax for regularity daily in the morning with coffee. 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 - Tried rapaflo x1 last night and this morning, this i snot a chronic med for him Medical History: Reviewed Medications: Reviewed Surgical History: Reviewed Family history: Reviewed Allergies: Reviewed Social History: Age [age] tobacco use while in the [employer], none in 46 years. Rare social etoh use Code Status: DNR/DNI Discharge Exam General: A&Ox3. NAD. Cooperative. HEENT: Atraumatic, normocephalic. Vision/hearing intact Pulm: CTAB A&P. -wheezes, -rales, -rhonchi. Symmetrical chest rise. No increased work of breathing. No respiratory distress. Cardiac: RRR, -mrg. Radial pulses intact and symmetrical. Abdominal: Nontender, nondistended, soft. BS present. No CVA tenderness. Ext: warm, dry, no edema MSK: No CVA tenderness Discharge Data Allergies Allergy/AdvReac Type Severity Reaction Status Date / Time No Known Allergies Allergy Unverified 02/22/23 10:43 Consultations 02/22/23 12:08 ED Decision to Admit Stat 02/23/23 08:36 Consult Urology Routine Ordered Studies 02/22/23 12:10 CT abd pelvis IV con only Stat CT angio chest PE protocol Stat 02/22/23 12:12 CT head/brain wo con Stat Hospital Course (1) Acute pyelonephritis: Sepsis due to acute pyelonephritis Complicated UTI, Sepsis by hypotension and leukocytosis with source Ordered for 30 cc/kg of IVF M, 1 L complete at time of hospitalist admission - CT-A/P: 1. No bowel obstruction or bowel wall thickening.2. Prostatomegaly with urinary bladder wall thickening suggestive of chronic outlet obstruction. Correlate with urinalysis to exclude cystitis.3. Colonic diverticulosis.4. Additional findings as above. Lactate wnl BP on hospitalist assessment improved, normotensive Several days of urinary symptoms UA with ketones, blood, nitrites suspicious for infection, UC pending CXR: No acute findings No leukocytosis -Hypokalemia remains. Will continue on potassium replacement. WIll continue on his current antibiotics. Concern over prostatitis will consult with urology. Pro-Ethan 0.79 CRP 11.48 - Continue cefepime, narrow based on UC Systolic murmur New holosystolic murmur, new per patient with no prior history of this TTE --> EF 60-65%. Moder . Hypokalemia 2.8 with poor p.o. intake for several days. 30 mEq repletion pending. Additional 20 mEq x 3 p.o. doses ordered Trend daily Magnesium added, pending. Replete to goal of 2.0 Elevated troponin No history of heart failure Clinically without chest pain, chest pressure. Suspected demand. Echo pending for murmur as noted - troponin 41.2 on admission, repeat post fluids downtrended. Defer q6h trend, follow clinically for pain EKG with incomplete right bundle branch block, QTc 423, no territorial ST segment or T wave changes. No baseline for comparison. Elevated PSA Patient follows with urology as outpatient, he is from out of state visiting for his grandsons birthday No history of prostate cancer or LUTS, but PSA has been slowly rising as outpatient.? Contribution to UTI He has not had pain with bowel movements or dysuria suspicious for prostatitis; however given suspected bacteremia due to cold sweats and elevated procal we will follow-up with prostate exam after patient has received antibiotics for a few hours DVT prophylaxis: Lovenox Disposition: Medical telemetry for elevated troponin, downgrade after 24 hours if stable and chest pain-free CODE STATUS: Full code Diet: Heart healthy (2) Thrombocytopenia: (3) Elevated troponin I level: (4) Hypokalemia: Discharge Plan Discharge Items Reason For Visit: COMPLICATED UTI Follow-up/Referrals: Johnny Becker MD [Primary Care Provider] - Medications and DC Order Prescriptions: No Action primidone 50 mg Tablet 50 mg PO HS atorvastatin 80 mg Tablet 80 mg PO HS polyethylene glycol 3350 [Miralax] 17 gram Powder In Packet 17 g PO DAILY aspirin [Aspir-81] 81 mg Tablet,Delayed Release (Dr/Ec) 81 mg PO DAILY silodosin [Rapaflo] 8 mg Capsule 8 mg PO DAILY Rx Instructions: must administer with a meal/food Admission Data Admit Date/Time: 02/22/23 12:10 Attending Provider: Manuel Mondragon Admit Provider: Pete Adams Primary Care Provider: Johnny Becker Other Providers: Pete Adams ; [facility] ; Matt Valentin ; Jeronimo Marin ; Feliz Quinones ; Maggie Lange ; Derek Hoskins ; Mini Chaidez ; Gwendolyn Holloway ; Nikolas Skaggs ; Mera Astorga ; Sheela Velazquez ; Ronny Shane ; Manolo Greene Coding Diagnoses Acute pyelonephritis N10 Thrombocytopenia D69.6 Elevated troponin I level R77.8 Hypokalemia E87.6
== END 2023-02-24 14:48 | disposition home or self-care (01) | DRG 872 ==
LOC: ED 09:10 → EDINP 12:10 → SUATTDRO 12:10 → 2N 13:18